=== PATIENT | female | born 1980 | race African-American/Black ===

== ENCOUNTER → 2017-08-17 | Day surgery (SDC) | payer SELFPAY ==
[~2017-08-17] VITALS: Ht 172.7 cm; Wt 86.2 kg
--- NOTE | 2017-08-17 15:59 | Operative Report ---
Operative/Inv Procedure Report Surgery Date: 08/17/17 Name of Procedure: Liposuction arms abdominal wall upper lower back Pre-Operative Diagnosis: Lipodystrophy Post-Operative Diagnosis: Same Estimated Blood Loss: scant (350) Surgeon/Ice Cream [employer]zer Assistant: Perdo LEWIS,Gary Parra Anesthesia: general endotracheal tube Operative/Procedure Note Note: Patient was counseled regards to the procedure the alternatives the risks and expected outcomes as relates to request for surgical intervention via liposuction to treat excess fat of the upper arms abdominal wall signs of chest up her lower back waist and flanks. Patient is on control pills we discussed and she accepted these small increased risk of blood clots leading to possibly emboli. I explained the need for early and ambulation and often as well as staying fully hydrated. She was marked in the standing position for the areas that would be treated those that would not. She was brought to the operating room after signing informed consent. Venodyne boots were placed on the calves general anesthesia was established and intravenous antibiotics were given. She was placed prone on the operating table and appropriately padded. Tumescent technique was used with the standard formulation in the upper mid and lower back waist. At the tumescent technique the safe liposuction technique was used incisions were closed in layers. She was then turned into the supine position again tumescent fluid placed into the deltoid , medial and lateral and posterior arm bilaterally. As well as the abdominal wall and lateral waist was also treated with tumescent. Again using the safe technique. 4 cannula was then used to remove aspirate as it was done on the back. Approximate 6100 mL total aspirate was removed after placing 6 L of tumescent fluid. Surgeons were closed in layers pressure garments were placed.
== END ==
LOC: STS 02:29
DX: Z41.1 Encounter for cosmetic surgery (principal); E65 Localized adiposity
CPT/HCPCS: 81025; C9399; J0131; J0171; J0690; J2250

== ENCOUNTER 2017-09-29 19:32 | Inpatient (IN) | payer OTHER ==
[~2017-09-29] VITALS: Ht 172.7 cm; Wt 89.4 kg
--- NOTE | 2017-09-29 19:55 | ED UPPER/LOWER EXTREMITY COMPL ---
History of Present Illness General Chief Complaint: Lower Extremity Problems Stated Complaint: SENT BY URGENT CARE FOR LEG PAIN AND ULTRASOUND Source: patient Exam Limitations: no limitations Vital Signs & Intake/Output Vital Signs & Intake/Output Vital Signs Date Time Temp Pulse Resp B/P B/P Pulse O2 O2 Flow FiO2 Mean Ox Delivery Rate 09/30 0633 97.9 79 18 127/72 100 Room Air 09/30 0405 99.4 73 18 121/64 98 Room Air 09/29 2323 97.8 70 18 104/60 98 Room Air 09/29 2005 98 Room Air 09/29 1950 98.4 76 18 111/75 95 ED Intake and Output 09/30 0000 09/29 1200 Intake Total 0 Output Total Balance 0 Intake, Oral 0 Patient 190 lb Weight Weight Reported by Patient Measurement Method Allergies Coded Allergies: iodine (UNKNOWN 08/16/17) shellfish derived (UNKNOWN 08/16/17) tree nut (UNKNOWN 08/16/17) Triage Note: PT PRESENTS TO THE ER, PT WAS SENT IN BY [email or web address] TO RULE OUT BLOOD CLOT. PT STATES THAT HER LEFT LOWER LEG IS PAINFUL 7/10 PAIN STARTED 5 DAYS AGO AND INCREASING GETTING WORSE. PT STATES TODAY THE PAIN WAS WORSE. PT STATES SHE IS ON BIRTHCONTROL PILLS FOR 20 YEARS/ PT DENIES SMOKING. PT HAD A RECENT LIPOSUCTION PROCEDURE 6 WEEKS AGO. Triage Nurses Notes Reviewed? yes Onset: Gradual Duration: day(s): Timing: recent history Severity: moderate Pain/Injury Location: Right: Leg. Method of Injury: unknown Associated Symptoms: swelling : No Patient currently breastfeeds: No HPI: 37 yo woman presents with right leg swelling x 5 days, unprovoked, without trauma, recent plane rides, recent surgeries. She notes her calf is slightly tender. She notes no redness, streaking, joint pain or swelling. She is otherwise well. Past History Travel History Traveled to [place] past 21 day No Medical History Any Pertinent Medical History? none Surgical History Surgical History: none Psychosocial History What is your primary language French Tobacco Use: Never used ETOH Use: occasional use Family History Hx Contributory? No Review of Systems Review of Systems Constitutional: Reports: no symptoms. EENTM: Reports: no symptoms. Respiratory: Reports: no symptoms. Cardiovascular: Reports: no symptoms. Gastrointestinal/Abdominal: Reports: no symptoms. Genitourinary: Reports: no symptoms. Musculoskeletal: Reports: no symptoms. Skin: Reports: no symptoms. Neurological/Psychological: Reports: no symptoms. Hematologic/Endocrine: Reports: no symptoms. Immunological: Reports: no symptoms. All Other Systems: Reviewed and Negative Physical Exam Physical Exam General Appearance: well developed/nourished, mild distress Head: atraumatic Eyes: Bilateral: normal appearance. Ears, Nose, Throat: normal pharynx, normal ENT inspection, hearing grossly normal Neck: normal inspection, supple Cardiovascular/Respiratory: regular rate/rhythm Back: normal inspection Leg Right: diffuse swelling along calf. no joint effusions. ROM is normal. no lymphangitic streaking. no erythema. Skin: intact, normal color, warm/dry Lymphatic: no anterior cervical dee Comments: pulm - clear lungs. rectal exam... guiac negative. Progress Differential Diagnosis: arterial insufficiency, contusion, sprain, dvt vs other. Plan of Care: Orders Procedure Date/time Status Regular Diet 09/30 L Active Regular Diet 09/30 B Complete PARTIAL THROMBOPLASTIN TIME 09/30 1300 Active Saline Lock 09/30 07 Active Misc Message 09/30 07 Active ED Holding Orders 09/30 07 Active Admit to inpatient 09/30 0707 Active Vital Signs 09/30 0707 Active Code Status 09/30 706 Active EKG 09/30 0646 Active HUMAN BETA HCG SCREEN 09/29 2206 Complete PARTIAL THROMBOPLASTIN TIME 09/29 2132 Complete PROTHROMBIN TIME 09/29 2132 Complete COMPREHENSIVE METABOLIC PANEL 09/29 2132 Complete CBC WITHOUT DIFFERENTIAL 09/29 2132 Complete TYPE & SCREEN (NOT X-MATCH) 09/29 2132 Complete Current Medications Sig/Woodrow Start time Last Medication Dose Stop Time Status Admin Heparin Sodium 25,000 UNIT Q24H 09/30 0630 UNVr 09/30 (Porcine) 0652 (Heparin) Sodium Chloride 500 ML Apixaban 5 MG BID 09/30 0319 CAN (Eliquis) Laboratory Tests 09/29/172206: Anion Gap 13, Estimated GFR > 60, BUN/Creatinine Ratio 10.0, Glucose 82, Calcium 9.4, Total Bilirubin 0.3, AST 14, ALT 21, Alkaline Phosphatase 66, Total Protein 7.2, Albumin 4.1, Globulin 3.1, Albumin/Globulin Ratio 1.3, Total Beta HCG NEGATIVE, PT 10.6, INR 0.97, APTT 26, CBC w Diff NO MAN DIFF REQ, RBC 4.25, MCV 86.4, MCH 28.3, MCHC 32.8 L, RDW 14.7 H, MPV 7.6, Gran % 64.9, Lymphocytes % 21.8, Monocytes % 6.4, Eosinophils % 5.8 H, Basophils % 1.1, Absolute Granulocytes 5.9, Absolute Lymphocytes 2.0, Absolute Monocytes 0.6, Absolute Eosinophils 0.5, Absolute Basophils 0.1 09/29/172146: Total Beta HCG Cancelled Diagnostic Imaging: Viewed by Me: Ultrasound. Discussed w/RAD: Ultrasound. Radiology Impression: PATIENT: MARIE CAMPUZANO PRESENT AGE: 37 PATIENT ACCOUNT NO: [id number] : 80 LOCATION: [facility] ORDERING PHYSICIAN: Quinten LYONS SERVICE DATE: 09/29/17 EXAM TYPE: US - US- UNILATERAL VENOUS DOPPLER EXAMINATION: US TRIPLEX LOWER EXTREMITY, LEFT CLINICAL INFORMATION: Edema. Pain. Swelling. Leg tenderness. COMPARISON: None TECHNIQUE: Color-flow triplex imaging with spectral analysis and compression Doppler were performed on the lower extremity. FINDINGS: There is occlusive thrombus in the left femoral vein in the upper thigh to the popliteal vein. The calf veins are not visualized. There is no Burt's cyst. IMPRESSION: Deep vein thrombosis of the left lower extremity with Occlusive thrombus of the left femoral vein to the popliteal vein. This critical result was discussed with Dr. Granados on 2017, 9:10 PM and it was ascertained that the content and urgency of the report was understood at the time of direct communication. DICTATED BY: Jose Miguel Sierra MD DATE/TIME DICTATED:09/29/172046 CONSULTING HR PROFESSIONAL:STACY DATE/TIME TRANSCRIBED:09/29/172046 CONFIDENTIAL, DO NOT COPY WITHOUT APPROPRIATE AUTHORIZATION. <Electronically signed in Other Vendor System> SIGNED BY: Jose Miguel Sierra MD 09/29/172115, PATIENT: MARIE CAMPUZANO PRESENT AGE: 37 PATIENT ACCOUNT NO: [id number] : 80 LOCATION: [facility] ORDERING PHYSICIAN: Jeremías Granados MD SERVICE DATE: 09/29/17 EXAM TYPE: CAT - CTA CHEST-PULMONARY EMBOLISM EXAMINATION: CT ANGIOGRAM OF THE CHEST WITH AND WITHOUT CONTRAST (CT PULMONARY ANGIOGRAM FOR PE) CLINICAL INFORMATION: Reason for Study:
Presumptive Dx: dyspnea, +dvt
Signs Symptoms: room 6
COMPARISON: None TECHNIQUE: Prior to contrast administration, noncontrast localization images were obtained. Subsequently, multidetector volumetric imaging was performed from the thoracic inlet to below the diaphragms following the administration of 95 mL Omnipaque 350 intravenous contrast. No contrast reaction reported. Sagittal, coronal, and MIP oblique sagittal reformatted images were obtained on the CT workstation, uploaded to PACS, and reviewed. Total exam dose-length product 431.38 mGy-cm. FINDINGS: QUALITY OF STUDY/CONTRAST BOLUS: Satisfactory PULMONARY ARTERIES: There are multiple bilateral pulmonary emboli affecting all lobes bilaterally, within the segmental to subsegmental vasculature. Right upper lobe emboli appear to be only subsegmental in location. THORACIC AORTA: No aneurysm or dissection. LUNG: No regions of consolidation bilaterally. Calcified granulomas are present in the right middle lobe. PLEURA: No pleural effusion or pneumothorax. MEDIASTINUM: The visualized thyroid gland is unremarkable. Right hilar and subcarinal lymph nodes are consistent with prior granulomatous disease. Cardiac size is within normal limits; no pericardial effusion. No evidence of septal bowing or right heart strain. CHEST WALL/AXILLA: No axillary or internal mammary lymphadenopathy. OSSEOUS STRUCTURES: No acute or suspicious osseous abnormality. UPPER ABDOMEN: Unremarkable. No reflux of contrast into the hepatic veins to suggest elevated right heart pressures. IMPRESSION: Multiple bilateral segmental to subsegmental pulmonary emboli. VTE: positive This critical result was discussed with Jeremías Graandos on 09/30/2017 6:21 AM, and it was ascertained that the content and urgency of the report was understood at the time of direct communication. DICTATED BY: Viet Hutchinson MD DATE/TIME DICTATED:09/30/17612 CONSULTING HR PROFESSIONAL:STACY DATE/TIME TRANSCRIBED:09/30/17612 CONFIDENTIAL, DO NOT COPY WITHOUT APPROPRIATE AUTHORIZATION. <Electronically signed in Other Vendor System> SIGNED BY: Viet Hutchinson MD 09/30/17624 Initial ED EKG: pending Departure Departure Disposition: HOME OR SELF CARE Condition: Stable Clinical Impression Primary Impression: DVT (deep venous thrombosis) Secondary Impressions: Pulmonary emboli Referrals: Patient Has No Primary Care Dr (PCP/Family) Departure Forms: Customer Survey General Discharge Information Comments 09/29/17, 21:11.... discussed with melina radiologist.... pt with dvt... from left upper femoral vein to popliteal vein. 09/29/17, 21:33... discussedd with sue nj, vascular surgeon, who will see patient in follow up. Pt to start eliquis, consider thrombolysis up to 2.5 weeks out with dvt diagnosis. 09/29/17, 21:40... Discussed with patient, upon further questioning, pt notes shortness of breath while climbing stairs.... will order ct angio. 09/29/17, 23:38... discussed with patient ... she has shellfish allergy... reviewed [facility] policy... will give benadryl and solumedrol... scan in 4 hours. 09/30/17, 6:21... discussed with melina radiology... pt with +PE Admission Note Spoke With: Harlan LEWIS,Sharan Documentation of Exam: Documentation of any treatments & extenuating circumstances including Concerns Regarding Discharge (functional status, medication knowledge or non-compliance, living conditions, etc.) that warrant an admission rather than observation: pt with dvt w/ afib, merits iv heparin, may need ivc filter... heparin gtt started as bridge to oral anticoagulants. Critical Care Note Critical Care Note Critical Care Time: 30-74 min
--- NOTE | 2017-09-29 21:16 | ULTRASOUND REPORT ---
EXAMINATION: US TRIPLEX LOWER EXTREMITY, LEFT CLINICAL INFORMATION: Edema. Pain. Swelling. Leg tenderness. COMPARISON: None TECHNIQUE: Color-flow triplex imaging with spectral analysis and compression Doppler were performed on the lower extremity. FINDINGS: There is occlusive thrombus in the left femoral vein in the upper thigh to the popliteal vein. The calf veins are not visualized. There is no Burt's cyst. IMPRESSION: Deep vein thrombosis of the left lower extremity with Occlusive thrombus of the left femoral vein to the popliteal vein. This critical result was discussed with Dr. Granados on 09/29/2017, 9:10 PM and it was ascertained that the content and urgency of the report was understood at the time of direct communication.
[2017-09-29 22:15] LABS: ABSOLUTE BASOPHIL COUNT 0.1 /CUMM (0.0-0.2); ABSOLUTE EOSINOPHIL COUNT 0.5 /CUMM (0.0-0.7); ABSOLUTE GRANULOCYTE CT 5.9 /CUMM (1.4-6.5); ABSOLUTE MONOCYTE COUNT 0.6 /CUMM (0.10-0.60); BASOPHIL % 1.1 % (0.0-2.0); EOSINOPHIL % 5.8 % (0-5); GRANULOCYTE % 64.9 % (42.2-75.2); HEMATOCRIT 36.7 % (37-47); MEAN CORPUSCULAR HGB 28.3 PG (27.0-31.0); MEAN CORPUSCULAR HGB CONC 32.8 G/DL (33.0-37.0); MEAN CORPUSCULAR VOLUME 86.4 FL (81.0-99.0); MEAN PLATELET VOLUME 7.6 FL (7.4-10.4); PLATELET COUNT 264 /CUMM (130-400); RBC DISTRIBUTION WIDTH 14.7 % (11.5-14.5); RED BLOOD CELL CT 4.25 /CUMM (4.20-5.40)
[2017-09-29 22:25] LABS: PT 10.6 SEC (9.4-12.5); PTT 26 SEC (25-37)
--- NOTE | 2017-09-30 06:25 | CT SCAN REPORT ---
EXAMINATION: CT ANGIOGRAM OF THE CHEST WITH AND WITHOUT CONTRAST (CT PULMONARY ANGIOGRAM FOR PE) CLINICAL INFORMATION: Reason for Study:
Presumptive Dx: dyspnea, +dvt
Signs Symptoms: room 6
COMPARISON: None TECHNIQUE: Prior to contrast administration, noncontrast localization images were obtained. Subsequently, multidetector volumetric imaging was performed from the thoracic inlet to below the diaphragms following the administration of 95 mL Omnipaque 350 intravenous contrast. No contrast reaction reported. Sagittal, coronal, and MIP oblique sagittal reformatted images were obtained on the CT workstation, uploaded to PACS, and reviewed. Total exam dose-length product 431.38 mGy-cm. FINDINGS: QUALITY OF STUDY/CONTRAST BOLUS: Satisfactory PULMONARY ARTERIES: There are multiple bilateral pulmonary emboli affecting all lobes bilaterally, within the segmental to subsegmental vasculature. Right upper lobe emboli appear to be only subsegmental in location. THORACIC AORTA: No aneurysm or dissection. LUNG: No regions of consolidation bilaterally. Calcified granulomas are present in the right middle lobe. PLEURA: No pleural effusion or pneumothorax. MEDIASTINUM: The visualized thyroid gland is unremarkable. Right hilar and subcarinal lymph nodes are consistent with prior granulomatous disease. Cardiac size is within normal limits; no pericardial effusion. No evidence of septal bowing or right heart strain. CHEST WALL/AXILLA: No axillary or internal mammary lymphadenopathy. OSSEOUS STRUCTURES: No acute or suspicious osseous abnormality. UPPER ABDOMEN: Unremarkable. No reflux of contrast into the hepatic veins to suggest elevated right heart pressures. IMPRESSION: Multiple bilateral segmental to subsegmental pulmonary emboli. VTE: positive This critical result was discussed with Jeremías Granados on 09/30/2017 6:21 AM, and it was ascertained that the content and urgency of the report was understood at the time of direct communication.
--- NOTE | 2017-09-30 09:22 | History & Physical ---
Lane LEWISSuzanne 09/30/17 0921: General Information and HPI MD Statement: I have seen and personally examined MARIE CAMPUZANO and documented this H&P. The patient is a 37 year old F who presented with a patient stated chief complaint of [left lower extremity pain and swelling]. Source of Information: patient Exam Limitations: no limitations History of Present Illness: Patient is a 37-year-old female with no known past medical history who presents with a five-day history of left lower extremity swelling and pain. Patient reports noticing some shortness of breath the day of presentation while trying to climb some stairs which she attributed to being out of shape. She went to an urgent care to get evaluated and was sent to [facility] for a lower extremity ultrasound scan to rule out DVT. She denies any chest pain, palpitations, abdominal pain, nausea, syncope or dizziness. She had liposuction of her upper and lower back about 6 weeks ago and was not as active as she used to be in the first few weeks. She denies any recent long distance travels, losses, prior history of blood clots, or malignancy. She does not smoke and drinks alcohol only socially. No illicit drug use. She has been on control pills since age 16 due to painful menstrual cycles. She reports apositive history of blood clots in her mother (at age 50) who is on Coumadin. Family history is only significant for a rare type of heart disease in her maternal grandparents and diabetes in her maternal uncle. No family history of strokes, diabetes, hypertension or malignancy. She does not know her paternal side. 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 Allergies/Medications Allergies: Coded Allergies: iodine (UNKNOWN 08/16/17) shellfish derived (UNKNOWN 08/16/17) tree nut (UNKNOWN 08/16/17) Past History Travel History Traveled to [place] past 21 day No Surgical History Surgical History: none Past Family/Social History Family History Relations & Conditions if any grand parents FH: heart disease Uncle FH: diabetes mellitus Psychosocial History Where do you live? Home Smoking Status: Never Smoked ETOH Use: occasional use Illicit Drug Use: denies illicit drug use Functional Ability ADLs Independent: dressing, eating, toileting, bathing. Ambulation: independent IADLs Independent: shopping, housework, finances, food prep, telephone, transportation , medication admin. Review of Systems Review of Systems Constitutional: Reports: no symptoms. Exam & Diagnostic Data Last 24 Hrs of Vital Signs/I&O Vital Signs Date Time Temp Pulse Resp B/P B/P Pulse O2 O2 Flow FiO2 Mean Ox Delivery Rate 09/30 1101 98.4 101 118/78 97 Room Air 09/30 0953 98.6 89 20 113/71 99 Room Air 09/30 0633 97.9 79 18 127/72 100 Room Air 09/30 0405 99.4 73 18 121/64 98 Room Air 09/29 2323 97.8 70 18 104/60 98 Room Air 09/29 2005 98 Room Air 09/29 1950 98.4 76 18 111/75 95 Intake & Output 09/30 1600 09/30 0800 09/30 0000 Intake Total 0 Output Total Balance 0 Intake, Oral 0 Patient 190 lb 190 lb 190 lb Weight Weight Reported by Patient Reported by Patient Measurement Method Physical Exam General Appearance Alert, Oriented X3, Cooperative Cardiovascular Normal S1, Normal S2, Relular rate with extra beats Lungs Clear to Auscultation, Normal Air Movement Abdomen Normal Bowel Sounds, Soft, No Tenderness Extremities Normal Pulses (bilaterally), Non-pitting edema of the left LE. Rt LE Normal Last 24 Hrs of Labs/[place]: Laboratory Tests 09/29/172206: Anion Gap 13, Estimated GFR > 60, BUN/Creatinine Ratio 10.0, Glucose 82, Calcium 9.4, Total Bilirubin 0.3, AST 14, ALT 21, Alkaline Phosphatase 66, Total Protein 7.2, Albumin 4.1, Globulin 3.1, Albumin/Globulin Ratio 1.3, Total Beta HCG NEGATIVE, PT 10.6, INR 0.97, APTT 26, CBC w Diff NO MAN DIFF REQ, RBC 4.25, MCV 86.4, MCH 28.3, MCHC 32.8 L, RDW 14.7 H, MPV 7.6, Gran % 64.9, Lymphocytes % 21.8, Monocytes % 6.4, Eosinophils % 5.8 H, Basophils % 1.1, Absolute Granulocytes 5.9, Absolute Lymphocytes 2.0, Absolute Monocytes 0.6, Absolute Eosinophils 0.5, Absolute Basophils 0.1 09/29/172146: Total Beta HCG Cancelled Diagnostic Data Other Results CTA IMPRESSION: Multiple bilateral segmental to subsegmental pulmonary emboli. VTE: positive Venous Dopplers Deep vein thrombosis of the left lower extremity with Occlusive thrombus of the left femoral vein to the popliteal vein. Assessment/Plan Assessment: Patient is a 37-year-old female with no known past medical history who presents with a five-day history of left lower extremity swelling and pain. Patient reports noticing some shortness of breath the day of presentation while trying to climb some stairs which she attributed to being out of shape. She went to an urgent care to get evaluated and was sent to [facility] for a lower extremity ultrasound scan to rule out DVT. Patient eager to be discharged as she has been here since yesterday in the ER. Assessment 1. Possible Provoked occlusive DVT and multiple PE-Hx of long standing control pills, recent surgery and decreased activity Plan 1. Admit to GM 2. Continue IV heparin for at least 24hrs 3. Switch to Eliquis in AM for 3-6months duration 4. Hematology and vascular work-up as outpatient per pt's wishes; does not want to stay to get this done in hospital 5. Echocardiogram to r/o right heart strain 6. Recheck EKG-Regular HR with extra beats on cardiac exam 7. Full code 8. DVT ppx with IV heparin 9. Regular diet 10. Follow attending recommedations As Ranked By This Provider Problem List: 1. DVT (deep venous thrombosis) 2. Pulmonary emboli Core Measures/Misc (04/09) Acute Coronary Syndrome ACS Diagnosis: No Congestive Heart Failure Congestive Heart Failure Diagnosis No Cerebrovascular Accident CVA/TIA Diagnosis: No VTE (View Protocol) VTE Risk Factors Acute Medical Illness No Mechanical VTE Prophylaxis d/t DVT (suspected/known) No VTE Pharm Prophylaxis d/t NA PharmProphylax ordered (IV heparin) Sepsis (View protocol) Sepsis Present: No Resident Review Statement Resident Statement: examined this patient Other Findings: see hpi HarlanBlu winnkahlil 09/30/17 1332: Attending MD Review Statement Attending Statement Attending MD Statement: examined this patient, discuss w/resident/PA/ACCOUNTING ADMINISTRATOR, agreed w/resident/PA/ACCOUNTING ADMINISTRATOR, discussed with family, reviewed EMR data (avail), discussed with nursing, discussed with case mgmt, reviewed images, amended to note Attending Assessment/Plan: 37 o/f with not significant pmh comes with pain in lower extrmeity and found to have new onset DVT with shortness of breath on exertion developed pulmonary embolism multiple segmental on room air. Patient started on iv heparin and can be transitioned to oral anticaogulation and monitored for hemodynamics. She needs referral for outpatient vascular surgery and hematology referral at discharge. Plan of care ja patient bedside.
[2017-09-30 11:01] VITALS: BP 118/78
[2017-09-30 15:28] VITALS: BP 110/70
[2017-09-30 16:42] LABS: PTT 68 SEC (25-37)
[2017-09-30 21:58] VITALS: BP 108/64
[2017-10-01 05:42] LABS: PTT 47 SEC (25-37)
[2017-10-01 06:56] VITALS: BP 110/80
--- NOTE | 2017-10-01 08:26 | PN- Housestaff ---
See Addendum Subjective Follow-up For: Pulmonary Emboli DVT Subjective: Patient was seen and examined at bedside. She feels much better than when she came in and that her leg swelling has significantly improved. Offers no complaints. No acute events overnight. Review of Systems Constitutional: Reports: no symptoms. Objective Last 24 Hrs of Vital Signs/I&O Vital Signs Date Time Temp Pulse Resp B/P B/P Pulse O2 O2 Flow FiO2 Mean Ox Delivery Rate 10/01 0656 98.9 80 20 110/80 97 09/30 2158 98.4 85 16 108/64 100 09/30 1528 99.0 79 18 110/70 96 Intake & Output 10/01 1600 10/01 0800 10/01 0000 Intake Total 680 480 Output Total Balance 680 480 Intake, IV 200 Intake, Oral 480 480 Patient 197 lb 196 lb Weight Weight Bed scale Chair scale Measurement Method Physical Exam General Appearance: Alert, Oriented X3, Cooperative, No Acute Distress Skin: No Rashes, No Breakdown Skin Temp/Moisture Exam: Warm/Dry Sepsis Skin Exam (color): Normal for Ethnicity HEENT: Atraumatic Cardiovascular: Normal S1, Normal S2, No Murmurs Lungs: Clear to Auscultation, Normal Air Movement Abdomen: Soft, No Tenderness Neurological: Normal Speech Extremities: No Edema Assessment/Plan Assessment: 37-year-old female with no past medical history presented with a five-day history of left lower extremity swelling and pain prior to coming to the ER. In the ER she was found to have PE and DVT of lower extremity. Assessment: 1. Pulmonary Emboli 2. DVT of the left lower extremity Plan * IV heparin can be discontinued today and patient can be transitioned to Eliquis * Will give her morning dose here. * She will need AC for at least 3 months. * Advised to stop control pills * Patient is stable to be discharged. * Outpatient hematology and vascular work up * DVT Prophylaxis: Eliquis * Code: Full * Diet: Regular Problem List: 1. Pulmonary emboli Pain Ratin Pain Location: none Pain Goal: Remain pain free Pain Plan: none Tomorrow's Labs & Rationales: none
[2017-10-01 08:47] LABS: ABSOLUTE BASOPHIL COUNT 0.1 /CUMM (0.0-0.2); ABSOLUTE EOSINOPHIL COUNT 0.2 /CUMM (0.0-0.7); ABSOLUTE GRANULOCYTE CT 7.7 /CUMM (1.4-6.5); ABSOLUTE LYMPH COUNT 2.7 /CUMM (1.2-3.4); ABSOLUTE MONOCYTE COUNT 0.9 /CUMM (0.10-0.60); BASOPHIL % 0.5 % (0.0-2.0); EOSINOPHIL % 1.6 % (0-5); GRANULOCYTE % 66.8 % (42.2-75.2); HEMATOCRIT 34.2 % (37-47); MEAN CORPUSCULAR HGB 28.8 PG (27.0-31.0); MEAN CORPUSCULAR HGB CONC 32.8 G/DL (33.0-37.0); MEAN CORPUSCULAR VOLUME 87.8 FL (81.0-99.0); MEAN PLATELET VOLUME 8.5 FL (7.4-10.4); PLATELET COUNT 264 /CUMM (130-400); RBC DISTRIBUTION WIDTH 14.5 % (11.5-14.5); WHITE BLOOD CELL COUNT 11.5 /CUMM (4.8-10.8)
--- NOTE | 2017-10-01 09:37 | Patient Discharge Instructions ---
Discharge Instructions General Discharge Information You were seen/treated for: Pulmonary Emboli Deep Venous Thrombosis Special Instructions: Please follow up with your PCP, gynaecologist, coat baster and a vascular surgeon within one week of discharge. Diet Continue normal diet: Yes Activity Full Activity/No Limits: Yes Acute Coronary Syndrome Inclusion Criteria At DC or during hospital stay patient has or had the following: ACS DIAGNOSIS No Discharge Core Measures Meds if any: Prescribed or Continued at Discharge Meds if any: NOT Prescribed or Continued at Discharge Congestive Heart Failure Inclusion Criteria At DC or during hospital stay patient has or had the following: CHF DIAGNOSIS No Discharge Core Measures Meds if any: Prescribed or Continued at Discharge Meds if any: NOT Prescribed or Continued at Discharge Cerebrovascular accident Inclusion Criteria At DC or during hospital stay patient has or had the following: CVA/TIA Diagnosis No Discharge Core Measures Meds if any: Prescribed or Continued at Discharge Meds if any: NOT Prescribed or Continued at Discharge Venous thromboembolism Inclusion Criteria VTE Diagnosis Yes VTE Type Pulmonary Embolism VTE Confirmed by (Test) CT CHEST ANGIOGRAM Discharge Core Measures - Per Current guidelines, there needs to be overlap - treatment for the first 5 days of Warfarin therapy. - If discharged on Warfarin prior to 5 days of - overlap therapy, the patient will need to be - assessed for post discharge needs including - *Post discharge parental anticoagulation - *Warfarin and/or parental anticoagulation education - *Follow up date to check INR post discharge At least 5 days overlap therapy as Inpatient No Meds if any: Prescribed or Continued at Discharge Note: Overlap Therapy is Warfarin and Anticoagulant Meds if any: NOT Prescribed or Continued at Discharge
--- NOTE | 2017-10-01 09:37 | Discharge Summary ---
Visit Information Visit Dates Admission Date: 09/30/17 Discharge Date: 10/01/17 Hospital Course Course Attending Physician: Sharan Claros MD Primary Care Physician: Patient Has No Primary Care Dr Hospital Course: Ms Brar is 37-year-old female with no past medical history who presented with a five-day history of left lower extremity swelling and pain. She stated having some shortness of breath the day of presentation while trying to climb stairs which she attributed to being out of shape. She initially went to an urgent care to get evaluated and was sent to [facility] for a lower extremity ultrasound scan to rule out DVT. She was seen and admitted for: Bilateral Pulmonary Emboli and Deep Venous Thrombosis: In the ER, a lower extremity doppler U/S showed DVT of the left lower extremity with occlusive thrombus of the left femoral vein to the popliteal vein. While the patient maintained her sats >92% on room air, she did have some complains of mild shortness of breath earlier. A Chest CTA was performed which demonstrated multiple bilateral pulmonary emboli. The patient's only known risk factor at this time is a control pill. However, she does mention that her mother has a positive history of blood clots and takes Coumadin for it. Ms Brar was admitted to the general medicine floor and started on IV heparin. She had a brief and uncomplicated hospital course. At the time of discharge she was switched from IV heparin to PO Eliquis and advised to take the medication as instructed. She will require outpatient follow up. The patient states that she does not have a PCP, hence she was provided with a referral for one. She will also need outpatient workup for her DVT/PE. She has been provided a referral for a travel nurse and vascular surgeon, with strong recommendation to follow up with them after discharge. Allergies: Coded Allergies: iodine (UNKNOWN 08/16/17) shellfish derived (UNKNOWN 08/16/17) tree nut (UNKNOWN 08/16/17) Significant Procedures: SERVICE DATE: 09/29/17 EXAM TYPE: CAT - CTA CHEST-PULMONARY EMBOLISM FINDINGS: QUALITY OF STUDY/CONTRAST BOLUS: Satisfactory PULMONARY ARTERIES: There are multiple bilateral pulmonary emboli affecting all lobes bilaterally, within the segmental to subsegmental vasculature. Right upper lobe emboli appear to be only subsegmental in location. THORACIC AORTA: No aneurysm or dissection. LUNG: No regions of consolidation bilaterally. Calcified granulomas are present in the right middle lobe. PLEURA: No pleural effusion or pneumothorax. MEDIASTINUM: The visualized thyroid gland is unremarkable. Right hilar and subcarinal lymph nodes are consistent with prior granulomatous disease. Cardiac size is within normal limits; no pericardial effusion. No evidence of septal bowing or right heart strain. CHEST WALL/AXILLA: No axillary or internal mammary lymphadenopathy. OSSEOUS STRUCTURES: No acute or suspicious osseous abnormality. UPPER ABDOMEN: Unremarkable. No reflux of contrast into the hepatic veins to suggest elevated right heart pressures. IMPRESSION: Multiple bilateral segmental to subsegmental pulmonary emboli. VTE: positive SERVICE DATE: 09/29/17 EXAM TYPE: US - US-UNILATERAL VENOUS DOPPLER IMPRESSION: Deep vein thrombosis of the left lower extremity with Occlusive thrombus of the left femoral vein to the popliteal vein. Disposition Summary Disposition Principal Diagnosis: Bilateral Pulmonary Emboli Deep Venous Thrombosis Additional Diagnosis: none Discharge Disposition: home or self care Discharge Instructions General Discharge Information Code Status: Full Code Patient's Diet: Regular Patient's Activity: As tolerated and as directed Follow-Up Instructions/Appts: Please follow up with a PCP, gynaecologist, vascular surgeon and travel nurse within one week of discharge. Medications at Discharge Discharge Medications: Start taking the following new medications: Apixaban (Eliquis) 5 MG TABLET 0 ORAL As Directed Qty = 60 No Refills Instructions: Please take 2 tablets of Eliquis 5mg twice a day from 10/01/17 to 10/07/17 Then take keep taking 1 tablet of Eliquis 5mg twice a day from 10/08/17 Comments: Please take 2 tablets of Eliquis 5mg twice a day from 10/01/17 to 10/07/17 Then take keep taking 1 tablet of Eliquis 5mg twice a day from 10/08/17 last given 09/21/17 @ 1230 Copies To: Johnathan Estevez MD
[2017-10-01] MEDS ORDERED: ELIQUIS5 M1 PO ×2 (09:40→10:34)
== END 2017-10-01 12:56 | DRG 197 ==
LOC: ERH 19:32 → ERHI 09-30 07:07 → ENRESERV 09-30 09:44 → ENTRNSPT 09-30 10:27 → EDTRNSPT 09-30 10:29 → EDTRNSPTSTS 09-30 10:29 → 2NB 09-30 10:47 → CMPTRNSPT 09-30 10:57 → ENPENDDIS 10-01 10:40 → 2NB 10-01 12:56
PROVIDERS: Pediatrics; Student in an Organized Health Care Education/Training Program
DX: I82.412 Acute embolism and thrombosis of left femoral vein (principal); I26.99 Other pulmonary embolism without acute cor pulmonale; I82.432 Acute embolism and thrombosis of left popliteal vein; Z79.3 Long term (current) use of hormonal contraceptives
CPT/HCPCS: 2NSBP; 36415; 36592; 82436; 93005; 93010; 96374; 96375; 99291; J1200; J1644; J2930